=== PATIENT | male | born 1950 | race Caucasian/White ===

== ENCOUNTER 2019-04-10 08:35 | Emergency (ER) | payer MEDICARE ==
[2019-04-10 08:51] VITALS: BP 138/88
--- NOTE | 2019-04-10 10:22 | UC ---
Skin Complaint HPI - HPI Summary HPI Summary: PATIENT COMES IN WITH 1 MONTH OF SCALY, THICKENED RASH OVER HIS LEFT LOWER LEG. DENIES ANY PAIN OR SWELLING. STATES IT IS OCCASIONALLY ITCHY. HAS A SIMILAR RASH ON HIS RIGHT EXTERNAL EAR THAT HAS BEEN THERE FOR SEVERAL MONTHS. NO NEW MEDICATIONS OR EXPOSURES OF WHICH HE IS AWARE. NO FEVER. - History of Current Complaint Chief Complaint: [facility] Time Seen by Provider: 04/10/19 08:56 Stated Complaint: RASH Hx Obtained From: Patient, Family/Edi Consultant - Onset/Duration: Gradual Onset, Lasting Weeks, Still Present Timing: Constant Onset Severity: Moderate Current Severity: Moderate Pain Intensity: 0 Pain Scale Used: 0-10 Numeric Character: Pruritus, Redness Aggravating Factor(s): Nothing Alleviating Factor(s): Nothing Associated Signs & Symptoms: Positive: Rash. Negative: Drainage, Tenderness, Red Streaks, Joint Swelling - Allergy/Home Medications Allergies/Adverse Reactions: Allergies Allergy/AdvReac Type Severity Reaction Status Date / Time No Known Allergies Allergy Verified 04/10/19 08:42 Home Medications: Home Medications Aspirin [Aspirin Childrens 81 MG] 1 tab PO DAILY 04/10/19 [History Confirmed 05/26] PMH/Surg Hx/FS Hx/Imm Hx Previously Healthy: Yes - Surgical History Surgical History: Yes Surgery Procedure, Year, and Place: Bowel surgery - Family History Known Family History: Positive: None - PT DENIES - Social History Alcohol Use: Occasionally Substance Use Type: None Smoking Status (MU): Never Smoked Tobacco Review of Systems All Other Systems Reviewed And Are Negative: Yes Constitutional: Positive: Negative Skin: Positive: Rash Respiratory: Positive: Negative Cardiovascular: Positive: Negative Gastrointestinal: Positive: Negative Physical Exam Triage Information Reviewed: Yes Appearance: Well-Appearing, No Pain Distress, Well-Nourished Vital Signs: Initial Vital Signs Temp 98.5 F 04/10/19 08:44 Pulse 79 04/10/19 08:44 Resp 18 04/10/19 08:44 BP 138/88 04/10/19 08:44 Pulse Ox 98 04/10/19 08:44 Vital Signs Reviewed: Yes Eyes: Positive: Conjunctiva Clear ENT: Positive: Hearing grossly normal, Other - LEFT EAC/TM NORMAL. RIGHT EAC WITH DEBRIS AND EDEMA. Neck: Positive: Supple Respiratory: Positive: No respiratory distress, No accessory muscle use Cardiovascular: Positive: Pulses Normal Abdomen Description: Positive: Soft Musculoskeletal: Positive: ROM Intact, No Edema Neurological: Positive: Alert Psychological: Positive: Age Appropriate Behavior Skin: Positive: Rashes - LEFT LEG (FROM JUST PROXIMAL TO KNEE EXTENDING TO ANKLE ) AND RIGHT EAR WITH SCALY PLAQUES WITH SURROUNDING ERYTHEMA. NOT TENDER. NO EDEMA. NO EXCORIATION Course/Dx - Course Course Of Treatment: PATIENT WOULD BENEFIT FROM DERMATOLOGY EVALUATION. [facility] CONTACTED. THEY WILL SEE THE PATIENT TODAY AT 10:30 AM. - Diagnoses Provider Diagnosis: Dermatitis Discharge ED - Sign-Out/Discharge Documenting (check all that apply): Patient Departure All imaging exams completed and their final reports reviewed: No Studies - Discharge Plan Condition: Stable Disposition: HOME Patient Education Materials: Dermatitis (ED) Referrals: Hardeep Daigle MD [Medical Doctor] - (APPT TODAy AT 10:30AM) Additional Instructions: YOU HAVE AN APPOINTMENT WITH DERMATOLOGY DR. DAIGLE TODAY AT 10:30 AM. ARRIVE A LITTLE EARLY IN CASE THERE IS PAPERWORK THAT NEEDS TO BE FILLED OUT. CALL THE NUMBER BELOW FOR ASSISTANCE IN ESTABLISHING WITH A PCP An additional resource available to assist in finding the appropriate physician for your health care needs is the [facility] ([facility]). You may contact them by calling [phone]. - Billing Disposition and Condition Condition: STABLE Disposition: Home
== END 2019-04-10 09:53 | disposition home or self-care (01) ==
LOC: UCEAST 08:35
DX: L30.9 Dermatitis, unspecified (principal); Z79.82 Long term (current) use of aspirin
CPT/HCPCS: 99211; G0463

== ENCOUNTER 2019-04-26 07:30 | Emergency (ER) | payer MEDICARE, MEDICAID ==
--- OUTSIDE RECORDS SUMMARY | 2019-04-26 07:38 | XMS REPORT | Continuity of Care Document ---
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 [employer] Unavailable Problems Description No Information Available Social History Type Date Description Comments Sex Unknown Allergies, Adverse Reactions, Alerts Description No Information Available Medications Description No Information Available Immunizations Description No Information Available Vital Signs Description No Information Available Results Description No Information Available Procedures Description No Information Available Medical Devices Description No Information Available Encounters Type Date Location Provider Dx Diagnosis Office Visit 04/10/2019 [facility] [address] [facility] Hardeep Daigle, L30.9 Dermatitis, 10:30a unspecified Assessments Date Code Description Provider 04/10/2019 L30.9 Dermatitis, unspecified Inocencia Orlando MD 04/10/2019 L30.9 Dermatitis, unspecified Hardeep Daigle MD Plan of Treatment Future Appointment(s):04/24/2019 9:15 am - Hardeep Daigle MD at [facility] [address] [facility] Functional Status Description No Information Available Mental Status Description No Information Available Referrals Description No Information Available
[2019-04-26 07:49] VITALS: BP 156/94
--- NOTE | 2019-04-26 08:29 | UC ---
Lower Extremity/Ankle HPI - HPI Summary HPI Summary: 68-year-old male comes in with a chief complaint of right first MCP joint swelling and pain. Started 5 days ago. Patient has a history of gout in he tells me this is what this feels like. He started drinking ahumada juice and trying other home remedies which she says usually works however it did not work this time. The last time this happened he reports he got a prescription for steroid which made it better. He has been taken ibuprofen which did initially help with any reports he got worse again. No fevers or chills no known trauma. - History of Current Complaint Chief Complaint: UCLowerExtremity Stated Complaint: FOOT PAIN Time Seen by Provider: 04/26/19 07:52 Pain Intensity: 9 - Allergies/Home Medications Allergies/Adverse Reactions: Allergies Allergy/AdvReac Type Severity Reaction Status Date / Time No Known Allergies Allergy Verified 04/26/19 07:41 Home Medications: Home Medications methylPREDNISolone [Medrol Dosepak 4 MG*] 0 mg PO .SEE FERMÍN INSTRUCTION #1 fermín [Rx] PMH/Surg Hx/FS Hx/Imm Hx Previously Healthy: Yes - GOUT - Surgical History Surgical History: Yes Surgery Procedure, Year, and Place: Bowel surgery - Family History Known Family History: Positive: None - PT DENIES - Social History Alcohol Use: Occasionally Substance Use Type: None Smoking Status (MU): Former Smoker Review of Systems All Other Systems Reviewed And Are Negative: Yes Constitutional: Positive: Negative Skin: Positive: Negative Eyes: Positive: Negative ENT: Positive: Negative Respiratory: Positive: Negative Cardiovascular: Positive: Negative Gastrointestinal: Positive: Negative Motor: Positive: Negative Neurovascular: Positive: Negative Musculoskeletal: Positive: Other: - SEE HPI Neurological/Mental Status: Positive: Negative Psychological: Positive: Negative Is Patient Immunocompromised?: No Physical Exam Triage Information Reviewed: Yes Appearance: Well-Appearing, No Pain Distress, Well-Nourished Vital Signs: Initial Vital Signs Temp 98.2 F 04/26/19 07:42 Pulse 93 04/26/19 07:42 Resp 16 04/26/19 07:42 BP 156/94 04/26/19 07:42 Pulse Ox 100 04/26/19 07:42 Vital Signs Reviewed: Yes Eye Exam: Normal Eyes: Positive: Conjunctiva Clear Neck: Positive: Supple Respiratory: Positive: No respiratory distress Musculoskeletal: Positive: Other: - Patient has swelling on the right first MCP. Is tender to palpation capillary refill is normal range of motion is normal normal sensation. Neurological: Positive: Alert, Muscle Tone Normal Psychological: Positive: Age Appropriate Behavior Skin Exam: Normal - No erythema of the right foot no streaking no drainage. Lower Extremity Course/Dx - Course Course Of Treatment: I do not perceive any evidence of infection on examination today no known trauma and with a history of gout this is consistent with gout therefore we will treat with a Medrol Dosepak. Patient will continue to use his ibuprofen and he'll follow-up with his primary care doctor or podiatry. He's to get reevaluated sooner if worse or any questions or concerns. 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 Discharge ED - Sign-Out/Discharge Documenting (check all that apply): Patient Departure All imaging exams completed and their final reports reviewed: No Studies - Discharge Plan Condition: Stable Disposition: HOME Prescriptions: methylPREDNISolone [Medrol Dosepak 4 MG*] 0 mg PO .SEE FERMÍN INSTRUCTION #1 fermín Patient Education Materials: Gout (ED) Referrals: [facility] [Outside] Jay Hammond DPM [Doctor of Podiatric Medicine] - Priscila Arevalo DPM [Doctor of Podiatric Medicine] - Additional Instructions: FOLLOW UP WITH YOUR PRIMARY CARE DOCTOR OR PODIATRY IF NOT COMPLETELY IMPROVED. GET REEVALUATED IF NOT IMPROVED OR WORSE; PAIN, SIGNS OF INFECTION, YOU FEEL ILL OR ANY QUESTIONS OR CONCERNS. - Billing Disposition and Condition Condition: STABLE Disposition: Home
== END 2019-04-26 08:35 | disposition home or self-care (01) ==
LOC: UCEAST 07:30
DX: M10.071 Idiopathic gout, right ankle and foot (principal); Z87.891 Personal history of nicotine dependence
CPT/HCPCS: 99211; G0463

== ENCOUNTER 2019-05-26 12:43 | Emergency (ER) | payer MEDICARE ==
[2019-05-26 13:06] VITALS: BP 166/100
--- NOTE | 2019-05-26 13:12 | UC ---
General HPI - HPI Summary HPI Summary: Reviewed cardiology physician - c/o dx with gout ~1 month ago. Pt was put on Prednisone and he states swelling went down a little but didn't completely resolve. Right foot is now swollen and painful. Pleasant 68 yo gentleman c/o progressively worse R foot pain. Denies trauma. Sx started apprx 1 month ago, dx'd with gout, prednisone taper helped. Has hx of gout sx, he thinks x apprx 2 yrs. Usually ahumada juice helps, but not this time. No fever / chills. No sob / cp / palpitations. No GI issues. Denies renal issues. No rash. Has been wearing sneakers with cut out for foot pain and swelling. Has been elevating foot at night, no report of arterial claudication sx. Not currently seeing a pcp. Had appt but didn't go, thinks he will be able to return though. - History of Current Complaint Chief Complaint: UCLowerExtremity Stated Complaint: FOOT COMPLAINT Hx Obtained From: Patient Pain Intensity: 2 - Allergy/Home Medications Allergies/Adverse Reactions: Allergies Allergy/AdvReac Type Severity Reaction Status Date / Time No Known Allergies Allergy Verified 05/26/19 13:06 Home Medications: Home Medications Allopurinol TAB* [Zyloprim 100 MG TAB*] 100 mg PO DAILY #30 tab 05/26/19 [Rx] Aspirin TAB* [Aspirin 325 MG TAB*] 325 mg PO DAILY 05/26/19 [History Confirmed 05/26/19] Colchicine* [Colcrys*] 0.6 mg PO DAILY #6 tab 05/26/19 [Rx] Ibuprofen TAB* [Advil TAB*] 400 mg PO PRN 05/26/19 [History] PMH/Surg Hx/FS Hx/Imm Hx Previously Healthy: No - see hpi - Surgical History Surgical History: Yes Surgery Procedure, Year, and Place: Bowel surgery - Family History Known Family History: Positive: None - PT DENIES - Social History Alcohol Use: Occasionally Substance Use Type: None Smoking Status (MU): Former Smoker Review of Systems All Other Systems Reviewed And Are Negative: Yes Constitutional: Positive: Negative Skin: Positive: Other - see hpi Eyes: Positive: Negative ENT: Positive: Negative Respiratory: Positive: Negative Cardiovascular: Positive: Negative Gastrointestinal: Positive: Negative Genitourinary: Positive: Negative Motor: Positive: Other - see hpi Neurovascular: Positive: Negative Musculoskeletal: Positive: Arthralgia Neurological/Mental Status: Positive: Negative Psychological: Positive: Negative Is Patient Immunocompromised?: No Physical Exam Triage Information Reviewed: Yes Appearance: Thin - thin not cachectic. nad. Sitting up. Vital Signs: Initial Vital Signs Temp 97.6 F 05/26/19 12:57 Pulse 83 05/26/19 12:57 Resp 16 05/26/19 12:57 BP 166/100 05/26/19 12:57 Pulse Ox 99 05/26/19 12:57 Vital Signs Reviewed: Yes Eye Exam: Normal - nad ENT Exam: Normal - mmm. grossly nad Neck exam: Normal - no pain c/o appears somewhat arthritic Respiratory Exam: Normal - RR normal, no tachypnea, no dyspnea Cardiovascular Exam: Normal - HR normal, nondiaphoretic. No visible or reported rash. Abdominal Exam: Normal - grossly benign Musculoskeletal Exam: Other - Both lower extremities exhibit evidence of stigmata of venous insuff and venous varicosities. No open sores noted to either foot. DP / PT palbable but faint DP bilat. CR good both feet. No focal unilateral swelling. R foot with + swelling 1st mtp, pain extends to 2- 3rd mtp area. Distal sens + LT Neurological Exam: Normal - grossly nonfocal Psychological Exam: Normal - nad Skin Exam: Normal Course/Dx - Course Course Of Treatment: BP 166/100. D/w pt including recommendation for recheck < 4 weeks. Reviewed coa / tx plan. Has not seen a pcp recently. Plans to connect with PCP, will call this week for appt. Will rx, susp acute gout (or acute on chronic). Will check blood work today. D /w pt. Post op shoe as needed, aware this is not meant to be half-way. Questions as posed answered to the best of my ability. - Diagnoses Provider Diagnosis: Foot pain, Gout Discharge ED - Sign-Out/Discharge Documenting (check all that apply): Patient Departure All imaging exams completed and their final reports reviewed: No Studies - Discharge Plan Condition: Stable Disposition: HOME Prescriptions: Allopurinol TAB* [Zyloprim 100 MG TAB*] 100 mg PO DAILY #30 tab Colchicine* [Colcrys*] 0.6 mg PO DAILY #6 tab Patient Education Materials: Gout (ED), Chronic Hypertension (ED) Referrals: [facility] [Outside] No Primary Care Phys,NOPCP [Primary Care Provider] - Additional Instructions: Important to follow up with a primary care provider as soon as you are able. Blood pressure today 166/100. Recommendation to follow up for blood pressure check within 4 weeks. Please seek medical attention for any worse or new problems. Hydrate. Elevate your foot frequently throughout the day, and at night as well. Blood work sent today. You will be notified if problem requiring change in management or urgent re-evaluation. - Billing Disposition and Condition Condition: STABLE Disposition: Home
[2019-05-27 11:21] LABS: ABS Eosinophils 0.2 10^3/ul (0-0.6); ABS Monocytes 0.7 10^3/ul (0-0.8); ABS Neutrophils 4.3 10^3/ul (1.5-7.7); Eosinophil % 3.7 %; Hematocrit 42 % (42-52); Hemoglobin 14.7 g/dL (14.0-18.0); Mean Corpuscular HGB Conc 35 g/dL (31-36); Mean Corpuscular Hemoglobin 32 pg (27-31); Mean Corpuscular Volume 93 fL (80-94); Mean Platelet Volume 8.5 fL (7.4-10.4); Nucleated Red Blood Cells % 0.2; Platelet Count 340 10^3/uL (150-450); Red Blood Count 4.55 10^6 /uL (4.18-5.48); Red Cell Distribution Width 14 % (10-15); White Blood Count 6.4 10^3/uL (3.5-10.8)
[2019-05-27 11:25] LABS: Potassium 4.1 mmol/L (3.5-5.0)
[2019-05-27 11:31] LABS: C Reactive Protein 6.23 mg/L (<8.01); EGFR African American 90.2 (>60); EGFR Non-African American 74.5 (>60); Uric Acid 7.3 mg/dL (4.4-7.6)
== END 2019-05-26 14:00 | disposition home or self-care (01) ==
LOC: UCEAST 12:43
DX: M10.071 Idiopathic gout, right ankle and foot (principal); Z79.82 Long term (current) use of aspirin; Z87.891 Personal history of nicotine dependence
CPT/HCPCS: 36415; 80048; 84550; 85025; 86140; 99212; G0463